=== PATIENT | female | born 1990 | race Caucasian/White ===

== ENCOUNTER → 2020-03-08 | Outpatient (CLI) | payer OTHER | LOC: LAB EV 10:20 → LAB SHORT 10:20 | DX: N39.0 Urinary tract infection, site not specified (principal) | CPT/HCPCS: 87077; 87086; 87186 ==

== ENCOUNTER → 2020-06-11 | Outpatient (CLI) | payer SELFPAY ==
[2020-06-13 05:10] LABS: CHLAMYDIA TRACHOMATIS, NAA Negative (Negative)
== END | disposition home or self-care (01) ==
LOC: LAB SHORT 16:30 → LAB 16:30
PROVIDERS: Obstetrics & Gynecology
DX: Z01.419 Encounter for gynecological examination (general) (routine) without abnormal findings (principal); Z11.3 Encounter for screening for infections with a predominantly sexual mode of transmission
CPT/HCPCS: 87491; 87591; G0123

== ENCOUNTER → 2020-11-27 | Outpatient (CLI) | payer OTHER ==
[~2020-11-27] MED LIST: ACET500 PO; DOCU100 PO; IBUP800 PO; OXAYDO5 M1 PO; PRENATAL TABLE1 EAC2 PO
== END | disposition home or self-care (01) ==
LOC: LAB SHORT 14:08 → LAB 14:08
DX: Z34.03 Encounter for supervision of normal first pregnancy, third trimester (principal)
CPT/HCPCS: 87081; 87150

== ENCOUNTER 2020-12-28 23:47 | Inpatient (IN) | payer OTHER ==
[~2020-12-28] VITALS: Ht 170.2 cm; Wt 92.3 kg
[2020-12-29 00:51] LABS: BASOPHILS ABSOLUTE AUTO 0.03 K/mm3 (0.00-0.23); BASOPHILS PERCENT AUTO 0 % (0-2); EOSINOPHILS ABSOLUTE AUTO 0.08 K/mm3 (0.00-0.68); EOSINOPHILS PERCENT AUTO 1 % (0-6); Hematocrit 40.4 % (33.0-51.0); Hemoglobin 13.3 g/dL (11.5-16.0); IMMATURE GRAN ABSOLUTE AUTO 0.04 K/mm3 (0.00-0.10); IMMATURE GRAN PERCENT AUTO 1 % (0-1); LYMPHOCYTES ABSOLUTE AUTO 2.18 K/mm3 (0.84-5.20); LYMPHOCYTES PERCENT AUTO 25 % (21-46); MONOCYTES ABSOLUTE AUTO 0.56 K/mm3 (0.16-1.47); MONOCYTES PERCENT AUTO 6 % (4-13); Mean Corpuscular HGB 26.5 pg (26.0-34.0); Mean Corpuscular HGB Conc 32.9 g/dL (31.5-36.5); Mean Corpuscular Volume 81 fL (80-100); Mean Platelet Volume 10.9 fL (9.1-12.4); NEUTROPHILS ABSOLUTE AUTO 5.93 K/mm3 (1.96-9.15); NEUTROPHILS PERCENT AUTO 67 % (41-73); Platelet Count 246 K/mm3 (150-400); RDW Coefficient Variation 13.5 % (11.7-14.2); RDW Standard Deviation 38.5 fL (35.1-46.3); Red Blood Cell Count 5.02 M/mm3 (3.80-5.20); White Blood Cell Count 8.82 K/mm3 (4.00-11.30)
[2020-12-29 01:41] LABS: SARS-Cov-2 (COVID-19) PCR, MMC POSITIVE (NEGATIVE)
[2020-12-29 18:41] LABS: PCO2 Cord - Arterial 46.7 mmHg (40-50); PO2 Cord - Arterial < 13 mmHg (16-20); pH Cord - Arterial 7.27 (7.28-7.35)
[2020-12-29 18:43] LABS: PCO2 Cord - Venous 42.9 mmHg (40-50); PO2 Cord - Venous 17.1 mmHg (28-32); pH Umbilical Cord - Venous 7.29 (7.26-7.35)
--- NOTE | 2020-12-29 19:29 | NUR ---
12/29/201928 Corina Duron PLACENTA DICARDED PER DR. DC. DO NOT HOLD. RBVO TO DR. VANDA DURON, RN
--- NOTE | 2020-12-29 21:47 | NUR ---
ASSUMED CARE OF PT AT THIS TIME FROM MARNIE WELLINGTON
[2020-12-30 06:23] LABS: BASOPHILS ABSOLUTE AUTO 0.02 K/mm3 (0.00-0.23); BASOPHILS PERCENT AUTO 0 % (0-2); EOSINOPHILS ABSOLUTE AUTO 0.08 K/mm3 (0.00-0.68); EOSINOPHILS PERCENT AUTO 1 % (0-6); Hemoglobin 10.1 g/dL (11.5-16.0); IMMATURE GRAN ABSOLUTE AUTO 0.04 K/mm3 (0.00-0.10); IMMATURE GRAN PERCENT AUTO 0 % (0-1); LYMPHOCYTES ABSOLUTE AUTO 2.25 K/mm3 (0.84-5.20); LYMPHOCYTES PERCENT AUTO 17 % (21-46); MONOCYTES ABSOLUTE AUTO 0.91 K/mm3 (0.16-1.47); MONOCYTES PERCENT AUTO 7 % (4-13); Mean Corpuscular HGB 27.2 pg (26.0-34.0); Mean Corpuscular HGB Conc 33.7 g/dL (31.5-36.5); Mean Corpuscular Volume 81 fL (80-100); Mean Platelet Volume 10.9 fL (9.1-12.4); NEUTROPHILS PERCENT AUTO 75 % (41-73); Platelet Count 181 K/mm3 (150-400); RDW Standard Deviation 41.1 fL (35.1-46.3); Red Blood Cell Count 3.71 M/mm3 (3.80-5.20)
[2020-12-30] MEDS ORDERED: ACET500 PO (13:26)
[2020-12-30] MEDS ORDERED: PRENATAL TABLE1 EAC2 PO (13:26)
[2020-12-30] MEDS ORDERED: OXAYDO5 M1 PO (13:27)
[2020-12-30] MEDS ORDERED: DOCU100 PO (13:27)
[2020-12-30] MEDS ORDERED: IBUP800 PO (13:27)
--- NOTE | 2020-12-31 18:09 | NUR ---
discharge instructions went over in detail with mother. will follow up thursday at 1530 here at [facility] with sherlyn guajardo rn for ppfu. will also call tomorrow and make sure she is seen within 2 weeks by her provider dr childs. prescriptions picked up by her justin. Orozco also will follow up with Tracee Espinoza, for her within 1 week & with cardiology within 2 weeks for repeat echo. bands matched and vss. formula for supplementation given if needed as well as extra pads. Educated that she can get her Covid vaccine after [address] Childs if she would like. Pt given pump through insurance here at the hospital per request.
== END 2020-12-31 18:55 | disposition home or self-care (01) | DRG 786 ==
LOC: OBS 23:47 → BC 23:50 → OBS 12-29 00:53 → BC 12-29 01:13
PROVIDERS: ADMIT Obstetrics & Gynecology
PROC: 10H07YZ Insertion of Other Device into Products of Conception, Via Natural or Artificial Opening (ICD-10-PCS; 2020-12-29)
PROC: 8E0ZXY6 Isolation (ICD-10-PCS; 2020-12-29)
PROC: 00HU33Z Insertion of Infusion Device into Spinal Canal, Percutaneous Approach (ICD-10-PCS; 2020-12-29)
PROC: 3E0R3BZ Introduction of Anesthetic Agent into Spinal Canal, Percutaneous Approach (ICD-10-PCS; 2020-12-29)
PROC: 10D00Z1 Extraction of Products of Conception, Low, Open Approach (ICD-10-PCS; principal; 2020-12-29 17:30)
DX: O76 Abnormality in fetal heart rate and rhythm complicating labor and delivery (principal); U07.1 COVID-19; O98.52 Other viral diseases complicating childbirth; O62.1 Secondary uterine inertia; O77.0 Labor and delivery complicated by meconium in amniotic fluid; Z3A.40 40 weeks gestation of pregnancy; Z37.0 Single live birth; Z88.2 Allergy status to sulfonamides; Z88.5 Allergy status to narcotic agent; Z86.19 Personal history of other infectious and parasitic diseases
CPT/HCPCS: 36415; 51702; 82803; 85025; 86850; 86900; 86901; A9270; J0171; J0456; J0690; J1885; J2370; J2405; J2590; J2765; J3010; J7050; J7120; U0004